=== PATIENT | male | born 1985 | race African-American/Black ===

== ENCOUNTER 2018-04-15 20:16 | Emergency (ER) | payer OTHER ==
[2018-04-15] MEDS: METHOCARBAMOL 1,000 MG/10 ML VIAL (J2800) IM (21:30)
== END 2018-04-15 22:17 | disposition home or self-care (01) ==
LOC: M ED 20:16
DX: S39.002A Unspecified injury of muscle, fascia and tendon of lower back, initial encounter (principal); X58.XXXA Exposure to other specified factors, initial encounter; Y92.89 Other specified places as the place of occurrence of the external cause
CPT/HCPCS: J2800